=== PATIENT | female | born 1940 | race Caucasian/White ===

== ENCOUNTER 2025-06-02 13:08 | Emergency (ER) | payer MEDICARE ==
[~2025-06-02] VITALS: Ht 152.4 cm; Wt 100.0 kg
[2025-06-02 13:21] VITALS: TEMP 98.4
[2025-06-02] MEDS ORDERED: ISOS30TA92 PO (13:21)
[2025-06-02] MEDS ORDERED: METO25XL PO (13:21)
[2025-06-02] MEDS ORDERED: FURO20TA5 PO (13:21)
[2025-06-02] MEDS ORDERED: APIX5TAB PO (13:21)
[2025-06-02] MEDS: KETOROLAC TROMETHAMINE 30 MG/ML VIAL IM ONE (13:41)
[2025-06-02] MEDS: ACETAMINOPHEN 500 MG TABLET PO ONE (13:41)
[2025-06-02] MEDS: LIDOCAINE 5% TRANSDERMAL PATCH TD ONE (13:42)
[2025-06-02 13:49] VITALS: BP 174/90; PULSE 72; RESP 18; O2SAT 98
== END 2025-06-02 14:26 | disposition home or self-care (01) ==
LOC: EMS 13:08
DX: S39.012A Strain of muscle, fascia and tendon of lower back, initial encounter (principal); I11.0 Hypertensive heart disease with heart failure; Z79.01 Long term (current) use of anticoagulants; Z79.899 Other long term (current) drug therapy; X58.XXXA Exposure to other specified factors, initial encounter; Y93.89 Activity, other specified; Y92.89 Other specified places as the place of occurrence of the external cause; Y99.8 Other external cause status
CPT/HCPCS: 99283; 73502; 96372; J1885